=== PATIENT | female | born 1975 | race Caucasian/White ===

== ENCOUNTER → 2016-07-06 | Outpatient (CLI) | payer BC ==
[~2016-07-06] MED LIST: CLR10 PO; DPKEC250 PO; FRCT/ PO; IMITREX
--- NOTE | 2016-07-06 11:21 | DIAGNOSTIC IMAGING REPORT ---
LEFT HAND 3 VIEWS CLINICAL HISTORY: Left hand pain. FINDINGS: 3 views of left hand are obtained. No prior studies are available for comparison at the time of dictation. The skeletal structures are well mineralized. No fracture is seen. The joint spaces of the hand are well-maintained. No bony erosions are identified. The overlying soft tissues are within normal limits. IMPRESSION: No acute bony abnormality is seen in the left hand. Electronically signed by: Obi Caraballo M.D. 07/06/2016 11:19 AM Dictated Date/Time: 07/06/2016 11:18 AM
--- NOTE | 2016-07-06 12:09 | DIAGNOSTIC IMAGING REPORT ---
LEFT WRIST 3 VIEWS CLINICAL HISTORY: Left wrist pain. FINDINGS: 3 views of left wrist are obtained. No prior studies are available for comparison at the time of dictation. The skeletal structures are well mineralized. No fracture is seen. The joint spaces of the wrist are preserved. The overlying soft tissues are within normal limits. IMPRESSION: No acute bony abnormality is identified in the left wrist. Electronically signed by: Obi Caraballo M.D. 07/06/2016 12:07 PM Dictated Date/Time: 07/06/2016 12:07 PM
== END | disposition home or self-care (01) ==
LOC: C.RDSM 14:39
PROVIDERS: ATTEND Physical Medicine & Rehabilitation Sports Medicine
DX: M79.642 Pain in left hand (principal); S62.92XA Unspecified fracture of left hand, initial encounter for closed fracture; X58.XXXA Exposure to other specified factors, initial encounter

== ENCOUNTER → 2016-07-27 | Outpatient (CLI) | payer BC ==
--- NOTE | 2016-07-27 11:02 | DIAGNOSTIC IMAGING REPORT ---
RIGHT WRIST 3 VIEWS CLINICAL HISTORY: Right wrist pain. FINDINGS: 3 views of the right wrist are obtained. No prior studies are available for comparison at the time of dictation. The skeletal structures are well mineralized. No fracture is seen. The joint spaces of the wrist are well-maintained. The overlying soft tissues are within normal limits. IMPRESSION: Unremarkable radiographic assessment of the right wrist. Electronically signed by: Obi Caraballo M.D. 07/27/2016 11:00 AM Dictated Date/Time: 07/27/2016 11:00 AM
== END | disposition home or self-care (01) ==
LOC: C.RDSM 14:49
PROVIDERS: ATTEND Physical Medicine & Rehabilitation Sports Medicine
DX: M25.531 Pain in right wrist (principal)

== ENCOUNTER 2016-08-30 08:13 | Emergency (ER) | payer BC ==
[~2016-08-30] VITALS: Ht 157.5 cm; Wt 62.6 kg
[~2016-08-30 08:13] MED LIST changes: -CLR10 PO; -IMITREX
[2016-08-30 08:14] VITALS: TEMP 36.7; Ht 157.5 cm; Wt 62.6 kg
[2016-08-30] MEDS ORDERED: IMITREX (08:24)
[2016-08-30] MEDS ORDERED: CLR10 PO (08:24)
[2016-08-30] MEDS ORDERED: SODIUM CHLORIDE 0.9% 1000ML 1,000 ML IV STA (08:59)
--- NOTE | 2016-08-30 09:11 | EMERGENCY ROOM VISIT NOTE ---
History First contact with patient: 08:39 Chief Complaint: DIZZY Stated Complaint: SHAKES,LIGHT HEADED,DIZZINESS History of Present Illness The patient is a 40 year old female who presents to the Emergency Room with complaints of chest pain and dizziness. The patient states that she was driving to work and had a sudden onset of dizziness and feeling of 1 sensation in her chest. The patient states she pulled over. The patient denies any earache, sore throat, cough or fever. She denies any true pain but describes discomfort more as a warm sensation. She denies any shortness of breath or pain with deep inspiration. She denies any abdominal pain, nausea or vomiting. She denies any leg or arm swelling or pain. She denies any personal or family history of coagulopathy. She does not take control pills. She states that she does have significant stressors in her life at this time. She states it could be due to anxiety. She has never been formally treated for anxiety. Review of Systems A 10 system review of systems was completed with positives and pertinent negatives listed in the HPI. Past Medical/Surgical History Medical Problems: (1) Migraine Family History Diabetes mellitus Social History Smoking Status: Never Smoker Drug Use: none Marital Status: Housing Status: lives with family Occupation Status: employed Current/Historical Medications Scheduled Loratadine (Claritin), 10 MG PO DAILY Miscellaneous Medications [Imitrex] Allergies Coded Allergies: No Known Allergies (Verified , 08/30/16) Physical Exam Vital Signs Date Time Temp Pulse Resp B/P Pulse Ox O2 Delivery O2 Flow Rate FiO2 08/30/16 10:25 75 16 107/67 97 08/30/16 08:31 86 08/30/16 08:14 36.7 100 18 123/80 97 Room Air Physical Exam VITALS: Vitals are noted on the nurse's note and reviewed by myself. Vital signs stable. The patient is afebrile. She is not tachycardic, tachypneic or hypoxic. GENERAL: This is a 40-year-old female, in no acute distress, nondiaphoretic, well-developed well-nourished. SKIN: The skin was without rashes, erythema, edema, or bruising. There is no tenting of the skin. Capillary reflex less than 2 seconds. HEAD: Normocephalic atraumatic. EARS: External auditory canals clear, tympanic membranes pearly pfeiffer without erythema or effusion bilaterally. EYES: Pupils equal round and reactive to light and accommodation. Conjunctivae without injection, sclerae without icterus. Extraocular movements intact. NOSE: Patent, turbinates without inflammation or discharge. MOUTH: Mucous membranes moist. Tonsils are not enlarged. Pharynx without erythema or exudate. Uvula midline. Airway patent. Tongue does not deviate. NECK: Supple without nuchal rigidity. No lymphadenopathy. No thyromegaly. Cervical spine is nontender. No JVD. HEART: Regular rate and rhythm without murmurs gallops or rubs. LUNGS: Clear to auscultation bilaterally without wheezes, rales or rhonchi. No retractions or accessory muscle use. ABDOMEN: Positive bowel sounds x 4. Soft, nontender, without masses or organomegaly. MUSCULOSKELETAL: No muscle atrophy, erythema, or edema noted. Full range of motion in all extremities. Normal gait. Strength 5/5 throughout. NEURO: Patient was alert and oriented to person place and time. No focal neurological deficits. Medical Decision & Procedures ER Provider Diagnostic Interpretation: CHEST ONE VIEW PORTABLE CLINICAL HISTORY: Chest pain. COMPARISON STUDY: Chest CT February 26, 2008. FINDINGS: Lung volumes are normal. Lungs are clear. There is no pneumothorax or pleural effusion. Cardiac size is normal. Mediastinal contours are normal. There is no evidence of pulmonary edema. IMPRESSION: No acute cardiopulmonary findings. Laboratory Results 08/30/16 08:35 Red Blood Count 4.45, Mean Corpuscular Volume 87.4, Mean Corpuscular Hemoglobin 30.8, Mean Corpuscular Hemoglobin Concent 35.2, Mean Platelet Volume 11.0, Neutrophils (%) (Auto) 76.8, Lymphocytes (%) (Auto) 14.5, Monocytes (%) (Auto) 5.5, Eosinophils (%) (Auto) 2.8, Basophils (%) (Auto) 0.3, Neutrophils # (Auto) 5.18, Lymphocytes # (Auto) 0.98, Monocytes # (Auto) 0.37, Eosinophils # (Auto) 0.19, Basophils # (Auto) 0.02 08/30/16 08:35 Test 08/30/16 08:35 08/30/16 09:00 White Blood Count 6.75 K/uL (4.8-10.8) Red Blood Count 4.45 M/uL (4.2-5.4) Hemoglobin 13.7 g/dL (12.0-16.0) Hematocrit 38.9 % (37-47) Mean Corpuscular Volume 87.4 fL (80-100) Mean Corpuscular Hemoglobin 30.8 pg (25-34) Mean Corpuscular Hemoglobin Concent 35.2 g/dl (32-36) Platelet Count 196 K/uL (130-400) Mean Platelet Volume 11.0 fL (7.4-10.4) Neutrophils (%) (Auto) 76.8 % Lymphocytes (%) (Auto) 14.5 % Monocytes (%) (Auto) 5.5 % Eosinophils (%) (Auto) 2.8 % Basophils (%) (Auto) 0.3 % Neutrophils # (Auto) 5.18 K/uL (1.4-6.5) Lymphocytes # (Auto) 0.98 K/uL (1.2-3.4) Monocytes # (Auto) 0.37 K/uL (0.11-0.59) Eosinophils # (Auto) 0.19 K/uL (0-0.5) Basophils # (Auto) 0.02 K/uL (0-0.2) RDW Standard Deviation 42.3 fL (36.4-46.3) RDW Coefficient of Variation 13.2 % (11.5-14.5) Immature Granulocyte % (Auto) 0.1 % Immature Granulocyte # (Auto) 0.01 K/uL (0.00-0.02) Anion Gap 6.0 mmol/L (3-11) Est Creatinine Clear Calc Drug Dose 65.7 ml/min Estimated GFR () 82.2 Estimated GFR (Non- 70.9 BUN/Creatinine Ratio 13.2 (10-20) Calcium Level 8.4 mg/dl (8.5-10.1) Total Bilirubin 0.7 mg/dl (0.2-1) Aspartate Amino Transf (AST/SGOT) 10 U/L (15-37) Alanine Aminotransferase (ALT/SGPT) 15 U/L (12-78) Alkaline Phosphatase 57 U/L (45-117) Total Creatine Kinase 54 U/L (26-192) Creatine Kinase MB < 0.5 ng/ml (0.5-3.6) Creatine Kinase MB Ratio (0-3.0) Troponin I < 0.015 ng/ml (0-0.045) Total Protein 7.2 gm/dl (6.4-8.2) Albumin 3.8 gm/dl (3.4-5.0) Globulin 3.4 gm/dl (2.5-4.0) Albumin/Globulin Ratio 1.1 (0.9-2) Thyroid Stimulating Hormone (TSH) 2.520 uIu/ml (0.300-4.500) Urine Color YELLOW Urine Appearance CLEAR (CLEAR) Urine pH 6.0 (4.5-7.5) Urine Specific [place] 1.004 (1.000-1.030) Urine Protein NEG (NEG) Urine Glucose (UA) NEG (NEG) Urine Ketones NEG (NEG) Urine Occult Blood 1+ (NEG) Urine Nitrite NEG (NEG) Urine Bilirubin NEG (NEG) Urine Urobilinogen NEG (NEG) Urine Leukocyte Esterase NEG (NEG) Urine WBC (Auto) 1-5 /hpf (0-5) Urine RBC (Auto) 0-4 /hpf (0-4) Urine Hyaline Casts (Auto) 0 /lpf (0-5) Urine Epithelial Cells (Auto) 20-30 /lpf (0-5) Urine Bacteria (Auto) NEG (NEG) Urine Test NEG (NEG) Medications Administered Medications (Trade) Dose Ordered Sig/Stevie Route Start Time Stop Time Status Last Admin Dose Admin Sodium Chloride (Nss 1000ml) 1,000 ml @ 999 mls/hr Q1H1M STAT IV 08/30/16 08:59 08/30/16 09:59 DC 08/30/16 09:26 999 MLS/HR Procedure The patient was monitored on a cardiac exercise physiologist. They maintained a normal sinus rhythm without ectopy. ECG Indication: chest pain Rate (beats per minute): 82 Rhythm: normal sinus Findings: no acute ischemic change Change: no significant change ED Course The patient was seen and examined. Previous visits were reviewed. The patient does not have a fever or leukocytosis. She does not have any significant electrolyte abnormalities. Thyroid was within normal limits. Troponin was not elevated. Urine test was negative. EKG does not reveal any arrhythmia or ischemia Chest x-ray was negative The patient was hydrated with normal saline The patient presents to the emergency department with a warm sensation in her chest. She has not had any shortness of breath or pain with deep inspiration. She does not take control pills. She was not tachycardic or hypoxic. She does not have significant risk factors for PE or DVT. The initial workup does not reveal any obvious abnormality. The patient states she has had a significant amount of stress and anxiety at home. This may be contributing to her symptoms. I did offer Ativan but the patient declined and stated she would rather follow-up with her family doctor. She was encouraged to contact her family doctor today to schedule a follow-up appointment for further evaluation and management. The case was discussed with Dr. Gonsales who agrees with the assessment and management plan Medical Decision DIFFERENTIAL DIAGNOSIS: Aortic dissection, myocarditis, pericarditis, cervical disc disease, costochondritis, herpes zoster, rib fracture, pleuritis, pneumonia , pulmonary embolus, tension pneumothorax, anxiety disorder, somatoform disorder , choledocholithiasis, status, esophagitis, esophageal spasm, esophageal reflux , esophageal rupture, pancreatitis, peptic ulcer disease, cardiac ischemia, ST elevation [place], acute coronary syndrome, arrhythmia, coronary artery vasospasm. vavular heart disease, coronary artery disease, among others. Impression Primary Impression: Chest pain, precordial Additional Impression: Anxiety reaction Departure Information Dispostion Home / Self-Care Condition GOOD Referrals No Doctor, Assigned (PCP) Patient Instructions Anxiety Body Response, Chest Pain - [facility], [facility] Additional Instructions Contact your family doctor today to schedule a follow up appointment for further evaluation and management Return with worsening symptoms, shortness of breath Problem Qualifiers
[2016-08-30 09:14] LABS: BASO % 0.3 %; BASO ABS # 0.02 K/uL (0-0.2); COMPLETE YES; EOS % 2.8 %; HEMATOCRIT 38.9 % (37-47); IG% 0.1 %; LYMPH % 14.5 %; LYMPH ABS # 0.98 K/uL (1.2-3.4); MEAN CELL VOLUME 87.4 fL (80-100); MEAN CORPUSCULAR HEMOGLOBIN 30.8 pg (25-34); MEAN CORPUSCULAR HGB CONC 35.2 g/dl (32-36); MONO % 5.5 %; NEUT % 76.8 %; PLATELET COUNT 196 K/uL (130-400); RED BLOOD COUNT 4.45 M/uL (4.2-5.4); WHITE BLOOD COUNT 6.75 K/uL (4.8-10.8)
--- NOTE | 2016-08-30 09:14 | DIAGNOSTIC IMAGING REPORT ---
CHEST ONE VIEW PORTABLE CLINICAL HISTORY: Chest pain. COMPARISON STUDY: Chest CT February 26, 2008. FINDINGS: Lung volumes are normal. Lungs are clear. There is no pneumothorax or pleural effusion. Cardiac size is normal. Mediastinal contours are normal. There is no evidence of pulmonary edema. IMPRESSION: No acute cardiopulmonary findings. Electronically signed by: Marv Fay M.D. 08/30/2016 9:12 AM Dictated Date/Time: 08/30/2016 9:12 AM
[2016-08-30 09:23] LABS: ALT/SGPT 15 U/L (12-78); AST/SGOT 10 U/L (15-37); BLOOD UREA NITROGEN 13 mg/dl (7-18); BUN/CREATININE RATIO 13.2 (10-20); CALCIUM 8.4 mg/dl (8.5-10.1); CARBON DIOXIDE 26 mmol/L (21-32); CHLORIDE 109 mmol/L (98-107); GLUCOSE 142 mg/dl (70-99); POTASSIUM 3.8 mmol/L (3.5-5.1); SODIUM 141 mmol/L (136-145)
[2016-08-30 09:34] LABS: ALB/GLOB RATIO 1.1 (0.9-2); ALKALINE PHOSPHATASE 57 U/L (45-117)
[2016-08-30 09:50] LABS: URINE APPEARANCE CLEAR (CLEAR); URINE BILIRUBIN NEG (NEG); URINE COLOR YELLOW; URINE EPITHELIAL CELL AUTO 20-30 /lpf (0-5); URINE NITRITE NEG (NEG); URINE SPECIFIC GRAVITY 1.004 (1.000-1.030); UROBILINOGEN NEG (NEG); ZZUR CULT IF INDIC CLEAN CATCH NO
[2016-08-30 09:58] LABS: MANUAL MICROSCOPIC REQUIRED? NO; REVIEW REQ? NO
[2016-08-30 10:25] VITALS: BP 107/67; PULSE 75; O2SAT 97
== END 2016-08-30 10:27 | disposition home or self-care (01) ==
LOC: C.EDB 08:14
DX: R07.2 Precordial pain (principal); F41.9 Anxiety disorder, unspecified; R42 Dizziness and giddiness

== ENCOUNTER 2021-04-27 22:57 | Inpatient (IN) ==
--- NOTE | 2021-04-27 23:28 | Emergency Department Note ---
History of Present Illness General Chief complaint: Illness Stated complaint: COV+(04/18) DIARRHEA, HEADACHE, VOMITING Time Seen by Provider: 04/27/21 23:08 History of Present Illness Maximum Pain Intensity: 8 This is a 45-year-old female that presents to the emergency department via priv ate vehicle with complaints of "Covid positive, diarrhea, headache, vomiting". The patient notes she is currently on day 10 of COVID-19 symptoms. Patient states that she initially began with a backache followed by some aching sensation into her legs followed by headache, fever, cough, diarrhea, nausea and vomiting. She states that she was tested [facility] here in [place] and was found to be positive for COVID-19. She denies any pertinent past medical history, surgeries or allergies. She notes that she is unvaccinated in regard to COVID-19. She denies any history of PE/DVT. Home Medications Medication Instructions Recorded Confirmed Type VS-RN-tredgh/WO-knoxqx-rruycbr 1 cap PO BID 04/28/21 04/28/21 History 10-5-325mg(d)/15-325-6.25mg capsules (Vicks DayQuil-NyQuil) acetaminophen 500 mg tablet 500 mg PO Q6H PRN 04/28/21 04/28/21 History Allergies Allergy/AdvReac Type Severity Reaction Status Date / Time No Known Allergies Allergy Verified 04/28/21 00:22 Past Med/Surg History Medical History (Updated 04/28/21 @ 08:47 by Logan Mcgrath PA-C) Gestational diabetes Surgical History No pertinent past surgical history Family History Mother Heart disease, Onset Age: 56 Father Diabetes Myocardial infarction, Onset Age: 50 Social History Smoking Status: Never smoker Second Hand Exposure: No; Do You Dip or Chew Tobacco: No; Hx Alcohol Use: No Hx Substance Use: No Preferred Language: Welsh Communication Ability: Effective Radiology Rn Required: No Beliefs That Will Affect Care: None Current Living Situation: Family Other Information That Helps Us Care for You: No Feels Safe at Home: Yes Safety Concerns: Feels Safe At This Time Assistive Devices: None Review of Systems A total of 10 systems reviewed and were otherwise negative Physical Exam Vital Signs Vital Signs - 24 hr 04/27/21 23:03 04/27/21 23:15 04/27/21 23:16 Temperature 37.3 C Temperature Source Temporal Artery Scan Pulse Rate 120 H Pulse Rate [Right Finger] 109 H Pulse Rhythm Pulse Rhythm [Right Finger] Pulse Strength [Right Finger] Normal Respiratory Rate 18 18 Respiratory Effort / Characteristics Short of Breath Non-Labored Spontaneous Respiratory Depth Normal Respiratory Pattern Regular Blood Pressure 100/62 Blood Pressure [Right Arm] 103/63 Blood Pressure Mean 74 Blood Pressure Mean [Right Arm] 76 Blood Pressure Position [Right Arm] Sitting Pulse Oximetry 88 L 89 L 89 L Oxygen Delivery Method Room Air Room Air Room Air Oxygen Flow Rate Sepsis Recent Fever Within 48 Hours No Sepsis New/Unexplained Change in Mental Status No Sepsis Action Taken by Nursing No Action Required Oxygen Flow Rate - Titration 2 Pulse Oximetry Post Tiitration 92 04/27/21 23:17 04/28/21 00:07 04/28/21 00:46 Temperature Temperature Source Pulse Rate 103 H Pulse Rate [Right Finger] 87 Pulse Rhythm Regular Pulse Rhythm [Right Finger] Regular Pulse Strength [Right Finger] Normal Respiratory Rate 18 18 Respiratory Effort / Characteristics Non-Labored Spontaneous Respiratory Depth Normal Respiratory Pattern Regular Blood Pressure Blood Pressure [Right Arm] 101/61 Blood Pressure Mean Blood Pressure Mean [Right Arm] 74 Blood Pressure Position [Right Arm] Sitting Pulse Oximetry 92 95 97 Oxygen Delivery Method Nasal Cannula Nasal Cannula Nasal Cannula Oxygen Flow Rate 2 2 2 Sepsis Recent Fever Within 48 Hours Sepsis New/Unexplained Change in Mental Status Sepsis Action Taken by Nursing Oxygen Flow Rate - Titration Pulse Oximetry Post Tiitration 04/28/21 01:00 Temperature Temperature Source Pulse Rate Pulse Rate [Right Finger] 95 H Pulse Rhythm Pulse Rhythm [Right Finger] Regular Pulse Strength [Right Finger] Normal Respiratory Rate 18 Respiratory Effort / Characteristics Non-Labored Spontaneous Respiratory Depth Normal Respiratory Pattern Regular Blood Pressure Blood Pressure [Right Arm] 100/66 Blood Pressure Mean Blood Pressure Mean [Right Arm] 77 Blood Pressure Position [Right Arm] Sitting Pulse Oximetry 95 Oxygen Delivery Method Nasal Cannula Oxygen Flow Rate 2 Sepsis Recent Fever Within 48 Hours Sepsis New/Unexplained Change in Mental Status Sepsis Action Taken by Nursing Oxygen Flow Rate - Titration Pulse Oximetry Post Tiitration VITAL SIGNS - Vital signs and nursing notes were reviewed. Stable and afebrile. GENERAL - 45-year-old female appearing her stated age who is in no acute distress but appears to be tired. Communicates well with provider and answers questions appropriately. SKIN - Without rashes. No meningeal or petechial rash. HEAD - NC/AT. EYES - PERRL with EOMI bilaterally. Sclera anicteric. EARS - No deformities of external structures noted on gross examination bilaterally. NOSE - Midline and without cyanosis. No epistaxis or purulent drainage noted. MOUTH/OROPHARYNX - Without perioral cyanosis. No drooling, stridor, trismus, wheezing or tripoding. Normal phonation. NECK - Neck with FROM. No nuchal rigidity. LUNGS - Chest wall symmetric without accessory muscle use, intercostals retractions, or central cyanosis. Normal vesicular breath sounds CTA B/L. No wheezes, rales, or rhonchi appreciated. CARDIAC - RRR EXTREMITIES - +5/5 strength noted in UE/LE bilaterally. NEUROLOGIC - Cranial nerves II through XII grossly intact. PSYCH - A&O, and cooperates fully with examiner. Pt is very pleasant and intera cts well with examiner. Course Administered Medications Albuterol (Albut/Ipratrop 3mg/0.5mg Neb 3 Ml Vial) 3 ml NEB QIDR [facility] Stop: 05/28/21 06:59 Last Admin: 04/28/21 05:58 Dose: 3 ml Documented by: [id number] Potassium Chloride/Sodium Chloride (Normal Saline W/20 Meq Kcl) 20 meq in 1,000 mls @ 80 mls/hr IV .[id number] [facility] Stop: 04/28/21 16:04 Last Admin: 04/28/21 04:55 Dose: 80 mls/hr Documented by: [id number] Azithromycin 500 mg/ Dextrose 255 mls @ 125 mls/hr IV Q24H [facility] Stop: 05/05/21 05:59 Last Infusion: 04/28/21 07:47 Dose: 0 mls/hr Documented by: [id number] Admin: 04/28/21 05:41 Dose: 125 mls/hr Documented by: [id number] Discontinued Medications Dexamethasone 6 mg/ Syringe 1.5 mls @ 1 mls/min IV ONE ONE Stop: 04/28/21 01:37 Last Admin: 04/28/21 02:40 Dose: 1 mls/min Documented by: [id number] Remdesivir 200 mg/ Sodium (Chloride) 250 mls @ 125 mls/hr IV ONE STA; Protocol Stop: 04/28/21 03:42 Last Infusion: 04/28/21 04:59 Dose: 0 mls/hr Documented by: [id number] Admin: 04/28/21 02:44 Dose: 125 mls/hr Documented by: [id number] Medical Decision Making Laboratory Data Result diagrams: 04/28/21 00:14 04/28/21 00:14 Lab Results 04/28/21 04/28/21 04/28/21 Range/Units 00:14 00:14 00:14 WBC 4.14 L (4.8-10.8) K/uL RBC 4.37 (4.2-5.4) M/uL Hgb 12.9 (12.0-16.0) g/dL Hct 38.0 (37-47) % MCV 87.0 (80-100) fL MCH 29.5 (25-34) pg MCHC 33.9 (32-36) g/dL RDW Std Deviation 43.9 (36.4-46.3) fL RDW Coeff of Tierney 13.7 (11.5-14.5) % Plt Count 114 L (130-400) K/uL MPV 11.3 H (7.4-10.4) fL Immature Gran % (Auto) 0.2 % Neut % (Auto) 80.3 % Lymph % (Auto) 11.1 % [place] % (Auto) 8.2 % Eos % (Auto) 0.2 % Baso % (Auto) 0.0 % Neut # (Auto) 3.32 (1.4-6.5) K/uL Lymph # (Auto) 0.46 L (1.2-3.4) K/uL [place] # (Auto) 0.34 (0.11-0.59) K/uL Eos # (Auto) 0.01 (0-0.5) K/uL Baso # (Auto) 0.00 (0-0.2) K/uL Immature Gran # (Auto) 0.01 (0.00-0.02) K/uL RBC Morphology Unremarkable Sodium 136 (136-145) mmol/L Potassium 4.0 (3.5-5.1) mmol/L Chloride 107 (98-107) mmol/L Carbon Dioxide 21 (21-32) mmol/L Anion Gap 8.0 (3-11) BUN 15 (7-18) mg/dl Creatinine 0.89 (0.6-1.2) mg/dl Est Cr Clr Drug Dosing 63.8 ml/min Est GFR ( Amer) 91.4 ml/min Est GFR (Non-Af Amer) 78.8 ml/min BUN/Creatinine Ratio 16.8 (10-20) Glucose 100 H (70-99) mg/dl Calcium 8.0 L (8.5-10.1) mg/dl Total Bilirubin 0.4 (0.2-1) mg/dl AST 44 H (15-37) U/L ALT 31 (12-78) Alkaline Phosphatase 46 (45-117) U/L Troponin I < 0.015 (0-0.045) ng/ml C-Reactive Protein 7.43 H (0-0.29) mg/dl Total Protein 6.4 (6.4-8.2) gm/dl Albumin 2.5 L (3.4-5.0) gm/dl Globulin 3.9 (2.5-4.0) gm/dl Albumin/Globulin Ratio 0.6 L (0.9-2) Procalcitonin 0.08 (0-0.5) ng/ml HCG, Qual Negative (Negative) SARS-CoV-2 (PCR) (Negative) Influenza Type A (PCR) (Neg) Influenza Type B (PCR) (Neg) RSV (RT-PCR) (Neg) 04/28/21 Range/Units 00:14 WBC (4.8-10.8) K/uL RBC (4.2-5.4) M/uL Hgb (12.0-16.0) g/dL Hct (37-47) % MCV (80-100) fL MCH (25-34) pg MCHC (32-36) g/dL RDW Std Deviation (36.4-46.3) fL RDW Coeff of Tierney (11.5-14.5) % Plt Count (130-400) K/uL MPV (7.4-10.4) fL Immature Gran % (Auto) % Neut % (Auto) % Lymph % (Auto) % [place] % (Auto) % Eos % (Auto) % Baso % (Auto) % Neut # (Auto) (1.4-6.5) K/uL Lymph # (Auto) (1.2-3.4) K/uL [place] # (Auto) (0.11-0.59) K/uL Eos # (Auto) (0-0.5) K/uL Baso # (Auto) (0-0.2) K/uL Immature Gran # (Auto) (0.00-0.02) K/uL RBC Morphology Sodium (136-145) mmol/L Potassium (3.5-5.1) mmol/L Chloride (98-107) mmol/L Carbon Dioxide (21-32) mmol/L Anion Gap (3-11) BUN (7-18) mg/dl Creatinine (0.6-1.2) mg/dl Est Cr Clr Drug Dosing ml/min Est GFR ( Amer) ml/min Est GFR (Non-Af Amer) ml/min BUN/Creatinine Ratio (10-20) Glucose (70-99) mg/dl Calcium (8.5-10.1) mg/dl Total Bilirubin (0.2-1) mg/dl AST (15-37) U/L ALT (12-78) Alkaline Phosphatase (45-117) U/L Troponin I (0-0.045) ng/ml C-Reactive Protein (0-0.29) mg/dl Total Protein (6.4-8.2) gm/dl Albumin (3.4-5.0) gm/dl Globulin (2.5-4.0) gm/dl Albumin/Globulin Ratio (0.9-2) Procalcitonin (0-0.5) ng/ml HCG, Qual (Negative) SARS-CoV-2 (PCR) POSITIVE A* (Negative) Influenza Type A (PCR) Negative (Neg) Influenza Type B (PCR) Negative (Neg) RSV (RT-PCR) Negative (Neg) MDM Narrative Patient was seen and evaluated as above in room B 10. Review was performed of triage nursing notes and vital signs. After obtaining a thorough history and physical examination the above work up was performed. Patient presents to us today with a known Covid positive diagnosis with associated diarrhea, headache, vomiting. Patient is found to be hypoxic on arrival. She is overall tired in appearance. Options of care were discussed with the patient. IV access was established. Labs were drawn. Laboratory studies at this time reveal leukopenia 4.14. No anemia. Thrombocytopenia noted at 114. No emergent metabolic disturbance. Mild hypocalcemia at 8.0. Mild AST elevation at 44. Troponin within normal limits. CRP elevated at 7.43. Covid testing positive. Pro-Hugh 0.08. hCG negative. Chest x-ray reveals what appears to be a multifocal pneumonia likely viral in nature. With the patient being hypoxic I do believe that further evaluation and management the inpatient setting is warranted. I do not suspect PE. Do not suspect meningitis or encephalitis. Case discussed with the hospitalist. Please refer to further documentation regarding her stay. Patient was seen during a period of high volume and acuity during the COVID-19 pandemic. EKG reveals normal sinus rhythm at a rate of 94 bpm. QTc 442. QRS 66. There is no ST elevation. GCS: 15 In the evaluation and treatment of this patient the following differential diagnoses were entertained: [place], PE, pericarditis, pneumonia, pneumothorax, COVID-19, among others. Impression & Plan Hypoxia, COVID-19, Pneumonia due to COVID-19 virus, Thrombocytopenia, Abnormal LFTs Discharge Plan Visit Data Chief Complaint: Illness Stated Complaint: COV+(04/18) DIARRHEA, HEADACHE, VOMITING ED Provider: Amanda Ahumada ED Midlevel Provider: Logan Mcgrath Discharge Problem: Hypoxia, COVID-19, Pneumonia due to COVID-19 virus, Thrombocytopenia, Abnormal LFTs Patient Disposition: Admitted As Inpatient Discharge Instructions Interventions: ED Discharge Assessment Last Done: 04/28/21 02:45
[2021-04-28 00:29] LABS: Hemoglobin 12.9 g/dL (12.0-16.0); Mean Corpuscular Hemoglobin 29.5 pg (25-34); Mean Corpuscular Hgb Conc 33.9 g/dL (32-36); Mean Platelet Volume 11.3 fL (7.4-10.4); Platelet Count 114 K/uL (130-400); RDW Coefficient of Variation 13.7 % (11.5-14.5); RDW Standard Deviation 43.9 fL (36.4-46.3); Red Blood Count 4.37 M/uL (4.2-5.4); White Blood Count 4.14 K/uL (4.8-10.8)
[2021-04-28 00:48] LABS: Alanine Aminotransferase 31 (12-78); Albumin Level 2.5 gm/dl (3.4-5.0); Aspartate Aminotransferase 44 U/L (15-37); BUN Creatinine Ratio 16.8 (10-20); Blood Urea Nitrogen 15 mg/dl (7-18); Carbon Dioxide 21 mmol/L (21-32); Chloride 107 mmol/L (98-107); Creatinine Clr Calc Pharmacy 63.8 ml/min; Est GFR (African American) 91.4 ml/min; Est GFR (Non-African American) 78.8 ml/min; Glucose 100 mg/dl (70-99); Sodium 136 mmol/L (136-145)
[2021-04-28 00:52] LABS: Albumin Globulin Ratio 0.6 (0.9-2); Alkaline Phosphatase 46 U/L (45-117); Bilirubin,Total 0.4 mg/dl (0.2-1); C Reactive Protein 7.43 mg/dl (0-0.29); Globulin 3.9 gm/dl (2.5-4.0); Total Protein 6.4 gm/dl (6.4-8.2); Troponin I < 0.015 ng/ml (0-0.045)
[2021-04-28 00:53] LABS: Pregnancy Test, Serum Negative (Negative)
[2021-04-28 00:56] LABS: Eosinophils # (auto) 0.01 K/uL (0-0.5); Eosinophils % (auto) 0.2 %; Immature Granulocytes # (auto) 0.01 K/uL (0.00-0.02); Immature Granulocytes % (auto) 0.2 %; Lymphocytes # (auto) 0.46 K/uL (1.2-3.4); Lymphocytes % (auto) 11.1 %; Monocytes # (auto) 0.34 K/uL (0.11-0.59); Monocytes % (auto) 8.2 %; Neutrophils # (auto) 3.32 K/uL (1.4-6.5); Neutrophils % (auto) 80.3 %; RBC Morphology Unremarkable
[2021-04-28 01:02] LABS: Influenza A virus by PCR Negative (Neg); Influenza B virus by PCR Negative (Neg); RSV by PCR Negative (Neg)
[2021-04-28 01:14] LABS: SARS CoV2 RNA(COVID-19) InHosp POSITIVE (Negative)
[2021-04-28 01:16] LABS: Procalcitonin 0.08 ng/ml (0-0.5)
[2021-04-28] MEDS ORDERED: dexAMETHasone 6 MG in SYRINGE 0 ML IV ONE (01:36)
[2021-04-28] MEDS ORDERED: REMDESIVIR 200 MG in SODIUM CHLORIDE 0.9% 210 ML IV STA (01:43)
--- NOTE | 2021-04-28 01:44 | History & Physical Report ---
Date of Service April 28, 2021 Assessment & Plan (1) Pneumonia due to COVID-19 virus: Plan: Multifocal pneumonia due to COVID-19 virus with hypoxia- Dexamethasone 6 mg IV every morning Remdesivir IV per protocol Azithromycin 500 mg IV daily Duonebs every 4 hours while awake and every 2 hours when necessary. Guaifenesin extended release 1200 mg p.o. twice daily Vitamin D 1000 international units p.o. every morning Zinc sulfate 220 mg p.o. every morning Nasal cannula oxygen, titrate to keep pulse ox 94-95% (2) Hypoxia: Plan: See above (3) Multifocal pneumonia: Plan: See above (4) Thrombocytopenia: Plan: Platelets 114 upon admission, with most recent 219 on 07/19/2019 Repeat laboratories in a.m. (5) Abnormal LFTs: Plan: AST 44 upon admission Likely secondary to COVID-19 infection Repeat laboratories in a.m. (6) Diarrhea due to COVID-19: Plan: Diarrhea due to COVID-19 infection-if persists, add cholestyramine in a.m. History of Present Illness Chief Complaint: The patient presents to the emergency department with complaint of shortness of breath, dyspnea on exertion, headache, diarrhea, vomiting and generalized malaise, with initial COVID-19 positive test on 04/18. Primary Care Provider: Rosa Park MD The patient is a 45-year-old female with no significant past medical history who presents with symptoms as noted above. Significant laboratories: Hemoglobin 12.9, hematocrit 38.0, platelets 114, AST 44, albumin 2.5. Patient is COVID-19 positive this evening, with influenza a and B- and RSV negative. Pulse ox 88% on room air Chest x-ray with multifocal pneumonia Allergies Allergy/AdvReac Type Severity Reaction Status Date / Time No Known Allergies Allergy Verified 04/28/21 00:22 Home Medications Medication Instructions Recorded Confirmed Type QQ-HB-gdjsct/BT-fqmbsm-zxwnbof 1 cap PO BID 04/28/21 04/28/21 History 10-5-325mg(d)/15-325-6.25mg capsules (Vicks DayQuil-NyQuil) acetaminophen 500 mg tablet 500 mg PO Q6H PRN 04/28/21 04/28/21 History Past Med/Surg History Medical History (Updated 04/28/21 @ 03:56 by Osito Levi MD) Gestational diabetes Surgical History No pertinent past surgical history Family History Mother Heart disease, Onset Age: 56 Father Diabetes Myocardial infarction, Onset Age: 50 Social History Smoking Status: Never smoker Hx Alcohol Use: Yes Hx Substance Use: No Preferred Language: Bermudian Feels Safe at Home: Yes Review of Systems Review of Systems: The patient denies chest pain, palpitations, cough, lower extremity swelling, sore throat, fevers, chills, sweats, blood in urine or stool, dysuria, urinary frequency or urgency, memory loss, loss of consciousness, rash, abnormal bruising or bleeding, imbalance, focal weakness, numbness or tingling in arms or legs, back or neck pain, or night sweats. The review of systems is otherwise negative other than for that already noted above, and at least 10 systems have been reviewed. Physical Exam Physical Exam: The patient is awake, alert and oriented 3, looks severely fatigued, normocephalic and atraumatic, lying in bed and in no acute distress. HEENT--PERRL, EOMI, mucous membranes and oropharynx dry. Neck--supple. No JVD. No bruits. Thyroid normal, trachea midline, no adenopathy. Heart--normal S1 and S2. No murmurs, rubs or gallops. Lungs--crackles throughout, no respiratory distress, no accessory muscle use. Abdomen--normal bowel sounds and soft. Nontender. Nondistended Extremities--no cyanosis or clubbing. No edema. Dermatologic--normal skin turgor, normal color, no abnormal lymph nodes, no rash. Neurologic--cranial nerves II through XII grossly intact. Rheumatologic--normal range of motion. Psychiatric--normal affect. Results & Data Results & Data ([facility]) Vital Signs (Past 12 Hours) Vital Signs Temp Pulse Pulse Resp BP BP Pulse Ox 04/28/21 01:00 95 H 18 100/66 95 04/28/21 00:07 103 H 18 95 04/27/21 23:17 92 04/27/21 23:16 89 L 04/27/21 23:15 109 H 18 103/63 89 L 04/27/21 23:03 37.3 C 120 H 18 100/62 88 L Laboratory Results Laboratory Results WBC 4.14 K/uL (4.8-10.8) L 04/28/21 00:14 RBC 4.37 M/uL (4.2-5.4) 04/28/21 00:14 Hgb 12.9 g/dL (12.0-16.0) 04/28/21 00:14 Hct 38.0 % (37-47) 04/28/21 00:14 MCV 87.0 fL (80-100) 04/28/21 00:14 MCH 29.5 pg (25-34) 04/28/21 00:14 MCHC 33.9 g/dL (32-36) 04/28/21 00:14 RDW Std Deviation 43.9 fL (36.4-46.3) 04/28/21 00:14 RDW Coeff of Tierney 13.7 % (11.5-14.5) 04/28/21 00:14 Plt Count 114 K/uL (130-400) L 04/28/21 00:14 MPV 11.3 fL (7.4-10.4) H 04/28/21 00:14 Immature Gran % (Auto) 0.2 % 04/28/21 00:14 Neut % (Auto) 80.3 % 04/28/21 00:14 Lymph % (Auto) 11.1 % 04/28/21 00:14 Millard % (Auto) 8.2 % 04/28/21 00:14 Eos % (Auto) 0.2 % 04/28/21 00:14 Baso % (Auto) 0.0 % 04/28/21 00:14 Neut # (Auto) 3.32 K/uL (1.4-6.5) 04/28/21 00:14 Lymph # (Auto) 0.46 K/uL (1.2-3.4) L 04/28/21 00:14 Millard # (Auto) 0.34 K/uL (0.11-0.59) 04/28/21 00:14 Eos # (Auto) 0.01 K/uL (0-0.5) 04/28/21 00:14 Baso # (Auto) 0.00 K/uL (0-0.2) 04/28/21 00:14 Immature Gran # (Auto) 0.01 K/uL (0.00-0.02) 04/28/21 00:14 RBC Morphology Unremarkable 04/28/21 00:14 Sodium 136 mmol/L (136-145) 04/28/21 00:14 Potassium 4.0 mmol/L (3.5-5.1) 04/28/21 00:14 Chloride 107 mmol/L (98-107) 04/28/21 00:14 Carbon Dioxide 21 mmol/L (21-32) 04/28/21 00:14 Anion Gap 8.0 (3-11) 04/28/21 00:14 BUN 15 mg/dl (7-18) 04/28/21 00:14 Creatinine 0.89 mg/dl (0.6-1.2) 04/28/21 00:14 Est Cr Clr Drug Dosing 63.8 ml/min 04/28/21 00:14 Est GFR ( Amer) 91.4 ml/min 04/28/21 00:14 Est GFR (Non-Af Amer) 78.8 ml/min 04/28/21 00:14 BUN/Creatinine Ratio 16.8 (10-20) 04/28/21 00:14 Glucose 100 mg/dl (70-99) H 04/28/21 00:14 Calcium 8.0 mg/dl (8.5-10.1) L 04/28/21 00:14 Total Bilirubin 0.4 mg/dl (0.2-1) 04/28/21 00:14 AST 44 U/L (15-37) H 04/28/21 00:14 ALT 31 (12-78) 04/28/21 00:14 Alkaline Phosphatase 46 U/L (45-117) 04/28/21 00:14 Troponin I < 0.015 ng/ml (0-0.045) 04/28/21 00:14 C-Reactive Protein 7.43 mg/dl (0-0.29) H 04/28/21 00:14 Total Protein 6.4 gm/dl (6.4-8.2) 04/28/21 00:14 Albumin 2.5 gm/dl (3.4-5.0) L 04/28/21 00:14 Globulin 3.9 gm/dl (2.5-4.0) 04/28/21 00:14 Albumin/Globulin Ratio 0.6 (0.9-2) L 04/28/21 00:14 Procalcitonin 0.08 ng/ml (0-0.5) 04/28/21 00:14 HCG, Qual Negative (Negative) 04/28/21 00:14 SARS-CoV-2 (PCR) POSITIVE (Negative) A* 04/28/21 00:14 Influenza Type A (PCR) Negative (Neg) 04/28/21 00:14 Influenza Type B (PCR) Negative (Neg) 04/28/21 00:14 RSV (RT-PCR) Negative (Neg) 04/28/21 00:14 Code Status & VTE Plan Code Status Full code VTE Prophylaxis Plan VTE Prophylaxis will be ordered: Yes PG Care Time/CCT Total # of Minutes Spent Total Time Spent with Patient: Total time spent is greater than 50% in coordination of care (as documented) at patient's floor/unit and/or counseling patient: Coding Level of Care Code 23346 Initial Inpt Care Lvl 3 Diagnoses Pneumonia due to COVID-19 virus U07.1; J12.82 Hypoxia R09.02 Multifocal pneumonia J18.9 Thrombocytopenia D69.6 Abnormal LFTs R79.89 Diarrhea due to COVID-19 U07.1; A08.39
[2021-04-28] MEDS ORDERED: NSS + 20MEQ KCL 20 MEQ/1,000 ML BAG IV SCH (03:35)
[2021-04-28] MEDS ORDERED: ONDANSETRON INJ 2 MG/ML 2 ML VIAL IV PRN (03:35)
[2021-04-28] MEDS ORDERED: SODIUM CHLORIDE 0.9% 10ML FLUSH IV SCH ×2 (04:30→21:00)
[2021-04-28] MEDS ORDERED: ALBUT/IPRATROP 3MG/0.5MG NEB 3 ML VIAL ONE (05:53)
[2021-04-28] MEDS ORDERED: AZITHROMYCIN 500 MG in DEXTROSE 5% 250 ML IV SCH (06:00)
[2021-04-28] MEDS ORDERED: ALBUT/IPRATROP 3MG/0.5MG NEB 3 ML VIAL NEB SCH (07:00)
--- NOTE | 2021-04-28 09:07 | XRay Report ---
XR chest 1V portable HISTORY: Covid positive. Shortness of breath. COMPARISON: Chest 20 minutes 20. FINDINGS: No pneumothorax or no pleural effusions. The heart is normal in size. Hazy bilateral airspa ce opacities seen within the mid to lower lung zones. This likely represents a viral pneumonia. No ev idence for pulmonary edema. Calcified right hilar lymph nodes are again noted. IMPRESSION: Hazy bilateral airspace opacities likely representing a viral pneumonia. ACT 112: Negative or not required by law. Electronically signed by: Andres Ramos M.D. 04/28/2021 9:06 AM
[2021-04-28] MEDS ORDERED: ALBUT/IPRATROP 3MG/0.5MG NEB 3 ML VIAL NEB PRN (09:13)
[2021-04-28] MEDS: dexAMETHasone 6 MG in SYRINGE 0 ML IV SCH (09:58)
[2021-04-28] MEDS: ENOXAPARIN INJ 40 MG/0.4 ML SYR SQ SCH (09:58)
[2021-04-28] MEDS: CHOLECALCIFEROL 1,000 UNITS 25 MCG TAB PO SCH (09:58)
[2021-04-28] MEDS: guaiFENesin 600 MG TABCR PO SCH ×2 (09:59→21:15)
[2021-04-28] MEDS: FAMOTIDINE 20 MG TAB PO SCH ×2 (09:59→21:15)
[2021-04-28] MEDS: ZINC SULFATE 220 MG CAPSULE PO SCH (09:59)
--- NOTE | 2021-04-28 15:10 | Hospitalist Progress Note ---
Date of Service April 28, 2021 Assessment & Plan (1) COVID-19: Plan: Ongoing symptoms for 10+ days (initially tested positive on 04/18) Primary symptoms are GI in nature (headache, vomiting, and diarrhea). Was unable to tolerate any oral intake which prompted her evaluation into the ED Patient did have tachycardia of 120 and leukocytosis of 13.17. These have since resolved with IV hydration. She has otherwise been hemodynamically stable Her current pulse ox is 98% on 2 L. Taken off of supplemental oxygen and her pulse ox remained stable at 93%. Last evening she apparently did drop briefly to 88% although she denies any shortness of breath We will stop remdesivir that was started as she does not qualify. She is outside if the 7-day window to benefit from remdesivir but also is not requiring any oxygen We will continue Decadron as initiated yesterday. At least for now Continue monitoring over the next 24 hours with reassessment tomorrow. If she remains stable and not requiring oxygen, can consider potential discharge within the next 24 hours Initially started on empiric azithromycin. Hold off on this for now as I do not believe she needs antibiotics at this time. Her symptoms seem very consistent with COVID-19 Although her chest x-ray is read as mild hazy bilateral airspace disease likely representing viral pneumonia, it is not significantly changed from an old x-ray done 07/10. Is difficult to compare as one is overpenetrated while the other is underpenetrated; however, the vasculature/airspace seems very similar (2) Thrombocytopenia: Plan: Platelet count 114 upon arrival (07/09/2019) Likely related to Covid We will trend (3) Abnormal LFTs: Plan: AST 44 upon admission Likely secondary to COVID-19 infection Follow-up labs tomorrow to trend (4) Diarrhea due to COVID-19: Plan: Diarrhea due to COVID-19 infection-no diarrhea since hospitalization (5) Leukocytosis: Plan: Likely reactive from vomiting Has since normalized Plan: Plan for potential discharge within the next 24 hours Admission and Anticipated Discharge Date Admission Date: April 28, 2021 Subjective Patient seen on daily rounds today. Hospitalized early this morning with Covid and mild hypoxemia. Presented primarily with GI symptoms including nausea, vomiting, and diarrhea. Was unable to keep anything down. Initially tested positive on 04/18. Denies any respiratory symptoms. Briefly dropped her pulse ox to around 88% yesterday. Has been on 2 L of supplemental oxygen since then and her pulse ox is between 96 and 99%. She denies any shortness of breath. Did have some mild tachycardia and leukocytosis upon presentation. Those have since resolved with IV hydration. Her nausea, vomiting, and diarrhea has since resolved. Review of Systems Review of Systems: All systems reviewed and are unremarkable except as noted in HPI and below Denies fevers, chills, headache, nasal congestion, sore throat, cough, chest pain, shortness of breath, palpitations, orthopnea, PND, abdominal pain, nausea, vomiting, diarrhea, constipation, dysuria, hematuria, frequency, back pain, j oint pain or swelling, easy bruising or bleeding, skin lesions or rashes. Physical Exam Physical Exam: General: Resting comfortably in her hospital bed. Appears mildly ill but not toxic. NAD. HEENT: Head is AT/NC buccal mucosa is moist and pink Neck: No JVD. Negative hepatojugular reflex Cardiac: RRR without M/G/R Lungs: CTA without W/R/R Abdomen: Normoactive X4. Soft and nontender in all quadrants. Extremities: No peripheral clubbing cyanosis or edema Neuro: A&O X4 cranial nerves II through XII are grossly intact no focal neuro deficits Skin: Multiple tattoos Psych: Appropriate affect pleasant and cooperative Results & Data Results & Data ([facility]) Vital Signs (Past 12 Hours) Vital Signs Temp Pulse Pulse Resp BP Pulse Ox Pulse Ox 04/28/21 11:05 36.5 C 63 18 114/62 93 04/28/21 08:00 95 94 04/28/21 07:40 36.8 C 99 H 22 97/65 L 94 04/28/21 06:01 86 14 97 04/28/21 05:26 36.8 C 83 18 104/68 93 04/28/21 04:57 95 04/28/21 04:38 80 18 107/67 96 Laboratory Results 04/28/21 00:14 04/28/21 00:14 Diagnostic Findings CXR: IMPRESSION: Hazy bilateral airspace opacities likely representing a viral pneumonia but when you compare her CXR to one done in 2019-- VERY SIMILAR in appearance (06/2019 appears overpenetrated and today's is underpenetrated but no obvious/convincing infiltrates). PG Care Time/CCT Total # of Minutes Spent Total Time Spent with Patient: Total time spent is greater than 50% in coordination of care (as documented) at patient's floor/unit and/or counseling patient: Coding Level of Care Code None Diagnoses Thrombocytopenia D69.6 Abnormal LFTs R79.89 Diarrhea due to COVID-19 U07.1; A08.39 COVID-19 U07.1 Leukocytosis D72.829
[2021-04-28] MEDS ORDERED: REMDESIVIR 100 MG in SODIUM CHLORIDE 0.9% 230 ML IV SCH (20:00)
--- NOTE | 2021-04-28 22:20 | Electrocardiogram Report ---
Test Reason : Blood Pressure : / mmHG Vent. Rate : 094 BPM Atrial Rate : 094 BPM P-R Int : 154 ms QRS Dur : 066 ms QT Int : 354 ms P-R-T Axes : 062 032 041 degrees QTc Int : 442 ms Normal sinus rhythm Possible Left atrial enlargement Borderline ECG When compared with ECG of 19-JUL-2019 17:32, No significant change was found Confirmed by Sumeet Salvador ([id number]) on 04/28/2021 10:20:04 PM Referred By: REFERRED SELF Confirmed By:Sumeet Salvador
[2021-04-29 05:47] LABS: Hematocrit (blood only) 38.3 % (37-47); Immature Granulocytes # (auto) 0.02 K/uL (0.00-0.02); Immature Granulocytes % (auto) 0.4 %; Lymphocytes # (auto) 0.58 K/uL (1.2-3.4); Lymphocytes % (auto) 10.2 %; Mean Corpuscular Hemoglobin 29.5 pg (25-34); Mean Corpuscular Hgb Conc 33.9 g/dL (32-36); Mean Corpuscular Volume 86.8 fL (80-100); Mean Platelet Volume 11.5 fL (7.4-10.4); Monocytes # (auto) 0.39 K/uL (0.11-0.59); Monocytes % (auto) 6.8 %; Neutrophils # (auto) 4.71 K/uL (1.4-6.5); Neutrophils % (auto) 82.6 %; Platelet Count 139 K/uL (130-400); RDW Coefficient of Variation 13.4 % (11.5-14.5); RDW Standard Deviation 42.8 fL (36.4-46.3); Red Blood Count 4.41 M/uL (4.2-5.4)
[2021-04-29 06:08] LABS: Magnesium 2.4 mg/dl (1.8-2.4)
[2021-04-29 06:11] LABS: Albumin Level 2.3 gm/dl (3.4-5.0); BUN Creatinine Ratio 25.6 (10-20); Calcium 8.1 mg/dl (8.5-10.1); Creatinine Clr Calc Pharmacy 67.6 ml/min; Est GFR (Non-African American) 84.5 ml/min; Potassium 4.3 mmol/L (3.5-5.1)
[2021-04-29 06:14] LABS: Albumin Globulin Ratio 0.6 (0.9-2); Bilirubin,Total 0.3 mg/dl (0.2-1); C Reactive Protein 4.59 mg/dl (0-0.29); Globulin 3.8 gm/dl (2.5-4.0); Total Protein 6.1 gm/dl (6.4-8.2)
[2021-04-29] MEDS ORDERED: BENZONATATE 100 MG CAPSULE PO PRN (09:09)
[2021-04-29] MEDS ORDERED: ACETAMINOPHEN 325 MG TAB PO PRN (09:09)
[2021-04-29] MEDS: ZINC SULFATE 220 MG CAPSULE PO SCH (09:28)
[2021-04-29] MEDS: ENOXAPARIN INJ 40 MG/0.4 ML SYR SQ SCH (09:28)
[2021-04-29] MEDS: guaiFENesin 600 MG TABCR PO SCH ×2 (09:28→20:26)
[2021-04-29] MEDS: FAMOTIDINE 20 MG TAB PO SCH ×2 (09:28→20:26)
[2021-04-29] MEDS: CHOLECALCIFEROL 1,000 UNITS 25 MCG TAB PO SCH (09:28)
[2021-04-29] MEDS: dexAMETHasone 6 MG in SYRINGE 0 ML IV SCH (09:28)
[2021-04-29] MEDS: ALBUT/IPRATROP 3MG/0.5MG NEB 3 ML VIAL NEB SCH ×3 (10:57→19:36)
[2021-04-29] MEDS ORDERED: FUROSEMIDE 20 MG TAB PO ONE (11:46)
--- NOTE | 2021-04-29 15:50 | Hospitalist Progress Note ---
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 Was unable to tolerate any oral intake which prompted her evaluation into the ED Patient did have tachycardia of 120 and leukocytosis of 13.17. These have since resolved with IV hydration. She has otherwise been hemodynamically stable Pulse Ox had remained stable on Ox but dropped in the overnight hours 04/28 - 04/29 (briefly to 86%. Went up to 89% with arousable and has remained 92-96% on 2L) does not meet criteria for Remdesivir (outside of the window for treatment) continue Decadron continue Incentive Spirometry, Neb treatments, mucolytic agents and add antitussives as needed Continue Tylenol as needed for headache/fever Initially started on empiric azithromycin. Hold off on this for now as I do not believe she needs antibiotics at this time. Her symptoms seem very consistent with COVID-19 (procalcitonin normal at 0.08) Although her chest x-ray is read as mild hazy bilateral airspace disease likely representing viral pneumonia, it is not significantly changed from an old x-ray done 07/10. Is difficult to compare as one is overpenetrated while the other is underpenetrated; however, the vasculature/airspace seems very similar I am not highly suspicious that she has a pulmonary embolism; however, she was tachycardic upfront and did drop her pulse ox to 86% without significant infiltrates seen on her chest x-ray. Will obtain a CTA to ensure no underlying PE. She is not on hormone replacement therapy and does not smoke (2) Thrombocytopenia: Plan: Platelet count 114 upon arrival now up to 122 Likely related to Covid We will trend (3) Abnormal LFTs: Plan: AST 44 upon admission--> has since normalized Likely secondary to COVID-19 infection Follow-up labs tomorrow to trend (4) Diarrhea due to COVID-19: Plan: Diarrhea due to COVID-19 infection-1 bout of diarrhea in past 24 hours (5) Leukocytosis: Plan: Likely reactive from vomiting Has since normalized Plan: given change in status, will watch for additional 24 hours (as opposed to sending her home today as initially planned) Admission and Anticipated Discharge Date Admission Date: April 28, 2021 Subjective Patient seen on daily rounds today. Overall vocalizes no significant complaints or concerns. Denies fevers, chills, chest pain, shortness of breath, abdominal pain, nausea or vomiting. Had 1 bout of diarrhea yesterday after eating. Does report a cough but cough is not keeping her up at night. She still feels weak. Was taken off of oxygen and remained on room air all day yesterday. While sleeping, she desaturated briefly to 86%. Nursing staff went to assess the patient and when she was aroused, her pulse ox came up to 89%. Has been in the low to mid 90s on 2 L of supplemental oxygen. Review of Systems Review of Systems: All systems reviewed and are unremarkable except as noted in HPI and below Denies fevers, chills, headache, nasal congestion, sore throat, cough, chest pain, shortness of breath, palpitations, orthopnea, PND, abdominal pain, nausea, vomiting, constipation, dysuria, hematuria, frequency, back pain, joint pain or swelling, easy bruising or bleeding, skin lesions or rashes. Physical Exam Physical Exam: General: Resting comfortably in her hospital bed. She appears mildly ill but not toxic. NAD. HEENT: Head is AT/NC buccal mucosa is moist and pink Neck: No JVD. Negative hepatojugular reflex Cardiac: RRR without M/G/R Lungs: Speaking full sentences on 2 L supplemental oxygen. No accessory muscle use or labored breathing. Good air exchange throughout without W/R/R Abdomen: Normoactive X4. Soft and nontender in all quadrants. Extremities: No peripheral clubbing cyanosis or edema Neuro: A&O X4 cranial nerves II through XII are grossly intact no focal neuro deficits Skin: No obvious skin lesions or rashes Psych: Appropriate affect pleasant and cooperative Results & Data Results & Data ([facility]) Vital Signs (Past 12 Hours) Vital Signs Temp Pulse Resp BP Pulse Ox 04/29/21 15:05 68 18 96 04/29/21 13:27 36.5 C 80 20 115/63 92 04/29/21 10:58 88 16 96 04/29/21 08:20 36.8 C 75 20 156/87 H 92 04/29/21 04:00 36.6 C 59 L 20 91/59 L 89 L Laboratory Results 04/29/21 05:07 04/29/21 05:07 PG Care Time/CCT Total # of Minutes Spent Total Time Spent with Patient: Total time spent is greater than 50% in coordination of care (as documented) at patient's floor/unit and/or counseling patient: Coding Level of Care Code 61738 Subseq Hosp Care Lvl 2 Diagnoses COVID-19 U07.1 Thrombocytopenia D69.6 Abnormal LFTs R79.89 Diarrhea due to COVID-19 U07.1; A08.39 Leukocytosis D72.829
[2021-04-29] MEDS ORDERED: OPTIRAY 320 125ml IV ONE (15:59)
--- NOTE | 2021-04-29 16:18 | CT Scan Report ---
CT angio chest PE protocol CT DOSE: 450.14 mGy.cm HISTORY: 45 years-old Female with r/o pe. Acute shortness of breath TECHNIQUE: Multiple CTA images of the chest were obtained after the intravenous administration of 120 ml Optiray. Coronal and sagittal MIPS were obtained from the axial data set and were submitted for review. All measurements were obtained according to NASCET criteria. A dose lowering technique was u tilized adhering to the principles of ALARA. COMPARISON: Chest radiograph 04/27/2021, CTA chest 02/26/2008. FINDINGS: CTA: The heart is normal in size. No pericardial effusion. There is no thoracic aortic aneurysm or dissect ion. There is patency of the imaged great vessels. Satisfactory opacification of the pulmonary artery . No filling defects identified to suggest thromboembolic disease. CT CHEST: No thyroid nodule or adenopathy identified. No pneumothorax or pleural effusion. There is a focal 2.8 cm lucent area of the right upper lobe on image 158 with central branching calcifications which may reflect an area of bronchial atresia. Subpleural predominant groundglass and consolidative opacities are noted bilaterally, most pronounced dependently. There are no suspicious pulmonary nodules or mass es. No overt pulmonary edema. The central airways appear patent. No acute process of the imaged upper abdomen. Unremarkable soft tissues. No acute fracture. IMPRESSION: 1. No pulmonary emboli. 2. Bilateral subpleural and dependent predominant groundglass and consolidative opacities are compati ble with multifocal likely viral pneumonia. ACT 112: Negative or not required by law. The above report was generated using voice recognition software. It may contain grammatical, syntax o r spelling errors. Electronically signed by: Harry Chaudhari M.D. 04/29/2021 4:16 PM
[2021-04-30 06:59] LABS: Basophils # (auto) 0.01 K/uL (0-0.2); Basophils % (auto) 0.1 %; Hematocrit (blood only) 36.7 % (37-47); Hemoglobin 12.4 g/dL (12.0-16.0); Immature Granulocytes # (auto) 0.02 K/uL (0.00-0.02); Immature Granulocytes % (auto) 0.2 %; Lymphocytes # (auto) 0.68 K/uL (1.2-3.4); Mean Corpuscular Hemoglobin 29.5 pg (25-34); Mean Corpuscular Hgb Conc 33.8 g/dL (32-36); Mean Corpuscular Volume 87.4 fL (80-100); Mean Platelet Volume 11.4 fL (7.4-10.4); Monocytes # (auto) 0.73 K/uL (0.11-0.59); Monocytes % (auto) 7.5 %; Neutrophils # (auto) 8.31 K/uL (1.4-6.5); Neutrophils % (auto) 85.2 %; Platelet Count 175 K/uL (130-400); RDW Coefficient of Variation 13.5 % (11.5-14.5); RDW Standard Deviation 43.3 fL (36.4-46.3); White Blood Count 9.75 K/uL (4.8-10.8)
[2021-04-30 07:29] LABS: Albumin Level 2.3 gm/dl (3.4-5.0); BUN Creatinine Ratio 27.8 (10-20); Calcium 7.9 mg/dl (8.5-10.1); Creatinine Clr Calc Pharmacy 65.3 ml/min; Est GFR (African American) 93.9 ml/min; Magnesium 2.2 mg/dl (1.8-2.4); Potassium 4.3 mmol/L (3.5-5.1)
[2021-04-30 07:32] LABS: Albumin Globulin Ratio 0.7 (0.9-2); Bilirubin,Total 0.4 mg/dl (0.2-1); Globulin 3.5 gm/dl (2.5-4.0); Total Protein 5.8 gm/dl (6.4-8.2)
[2021-04-30] MEDS: ALBUT/IPRATROP 3MG/0.5MG NEB 3 ML VIAL NEB SCH ×2 (07:41→10:57)
[2021-04-30] MEDS: guaiFENesin 600 MG TABCR PO SCH (09:53)
[2021-04-30] MEDS: ZINC SULFATE 220 MG CAPSULE PO SCH (09:53)
[2021-04-30] MEDS: FAMOTIDINE 20 MG TAB PO SCH (09:54)
[2021-04-30] MEDS: ENOXAPARIN INJ 40 MG/0.4 ML SYR SQ SCH (09:54)
[2021-04-30] MEDS: CHOLECALCIFEROL 1,000 UNITS 25 MCG TAB PO SCH (09:55)
[2021-04-30] MEDS: dexAMETHasone 6 MG in SYRINGE 0 ML IV SCH (09:55)
--- NOTE | 2021-04-30 13:43 | Discharge Summary ---
Date of Service April 30, 2021 Admission HPI Per Admitting Provider The patient is a 45-year-old female with no significant past medical history who presents with symptoms as noted above. Significant laboratories: Hemoglobin 12.9, hematocrit 38.0, platelets 114, AST 44, albumin 2.5. Patient is COVID-19 positive this evening, with influenza a and B- and RSV negative. Pulse ox 88% on room air Chest x-ray with multifocal pneumonia Principal Diagnosis 1. COVID-19 with multilobar pneumonia 2. Hypoxemia 3. Thrombocytopeniaresolved and secondary to Covid 4. Mild transaminitisresolved and secondary to Covid Discharge Exam General: Resting comfortably in her hospital bed does not appear ill or toxic NAD. HEENT: Head is AT/NC buccal mucosa is moist and pink Neck: No JVD. Negative hepatojugular reflex Cardiac: RRR without M/G/R Lungs: CTA without W/R/R Abdomen: Normoactive X4. Soft and nontender in all quadrants. Extremities: No peripheral clubbing cyanosis or edema Neuro: A&O X4 cranial nerves II through XII are grossly intact no focal neuro deficits Skin: No obvious skin lesions or rashes Psych: Appropriate affect pleasant and cooperative Discharge Data Allergies Allergy/AdvReac Type Severity Reaction Status Date / Time No Known Allergies Allergy Verified 04/28/21 00:22 Consultations 04/28/21 00:51 ED Decision to Admit Stat Ordered Studies 04/29/21 07:00 CT angio chest PE protocol Urgent IMPRESSION: 1. No pulmonary emboli. 2. Bilateral subpleural and dependent predominant groundglass and consolidative opacities are compatible with multifocal likely viral pneumonia. Hospital Course (1) COVID-19: Ongoing symptoms for 11+ days [employer]--(initially tested positive on 04/18) Primary symptoms GI in nature (headache, vomiting, and diarrhea). Was unable to tolerate any oral intake which prompted her evaluation into the ED Patient did have tachycardia of 120 and leukocytosis of 13.17. These have since resolved with IV hydration. She has otherwise been hemodynamically stable Pulse Ox had remained stable on RA but dropped in the overnight hours 04/28 - 06/30 (briefly to 86%. Went up to 89% with arousable and has remained 92-96% on 2L) does not meet criteria for Remdesivir (outside of the window for treatment) Decadron x3 doses while in house (continue upon D/C for 10 days total) Utilized incentive Spirometry, Neb treatments, mucolytic agents and antitussives as needed Continue Tylenol as needed for headache/fever Initially started on empiric azithromycin. But later stopped as thought to be unnecessary. Her symptoms seem very consistent with COVID-19 (procalcitonin normal at 0.08) Although her chest x-ray was read as mild hazy bilateral airspace disease likely representing viral pneumonia, it is not significantly changed from an old x-ray done 07/10. Is difficult to compare as one is overpenetrated while the other is underpenetrated; however, the vasculature/airspace seems very similar Given the tachycardia and a brief hypoxemia, a CTA of the chest was performed that showed no evidence of PE but did show multifocal groundglass opacities consistent with Covid Patient seen on daily rounds 04/30. She remains on supplemental oxygen but her pulse ox is 96%. Taken off and her pulse ox remains above 90%. A two-step pulse oximetry performed showing no need for oxygen at rest but she does require 3 L with exertion At this point in time, I feel that she is medically and hemodynamically stable for discharge to home. She has remained stable for over 24 hours without worsening in her condition She does not qualify for IV remdesivir She can be continued on Decadron (orally) upon discharge Patient encouraged to return back to the ED for new or worsening symptoms. She vocalizes understanding Case management on board to help set up home O2 (2) Thrombocytopenia: Platelet count 114 upon arrival but has since normalized Likely related to Covid (3) Abnormal LFTs: AST 44 upon admission--> has since normalized Likely secondary to COVID-19 infection (4) Diarrhea due to COVID-19: Diarrhea due to COVID-19 infection-1 but has since resolved (5) Leukocytosis: Likely reactive from vomiting (13,000 upon arrival). Has since normalized patient has been stable for over 24 hours At this point in time, I believe she is medically and hemodynamically stable for discharged home. Unfortunately, her symptomatology may worsen and she is to come back to the ED if that is the case Total Time Total Time Spent Total Time Spent (In Minutes): 60 minutes including time spent with patient, coordination of care (discussion with case management to set up oxygen and ordering the O2), preparation of documentation and discussion with attending physician Discharge Plan Discharge Items Patient Disposition: Home - Self-Care Reason For Visit: COVID-19 PNEUMONIA WITH HYPOXIA Discharge Diagnosis: 1. Covid Pneumonia with Hypoxemia 2. Thrombocytopenia (low platelet count)-- secondary to covid and RESOLVED 3. Transaminitis (abnormal liver function studies)--secondary to covid and RESOLVED Activity: As commented below Activity Comment: as tolerated as outlined below Non-emergency contact: Primary Care Provider Call non-emergency contact if: you have any medication questions and your symptoms worsen Follow-up/Referrals: Rosa Park MD [Primary Care Provider] - (A mechanical unit repairer from [facility] will be contacting you regarding a follow up appt with your PCP. You are being discharged on a weekend, in which you PCP office is closed.) Diet: Regular Addtl Attending Provider Instructions: - you were hospitalized with Covid Pneumonia - you have associated hypoxemia (low oxygen levels) - fortunately, you have been very stable - you do not require supplemental Oxygen at rest but you need 3L with ambulation (walking) - The need for Oxygen is likely NOT permanent but necessary until your lung fully recover (which is different for everyone but may take weeks to months) - as discussed, would advise that you get a pulse oximeter to monitor Oxygen levels (goal is 90% but anything >88% is acceptable) - I advise that you remain active (as tolerated) but also do not push it. Listen to your body. You will be easily fatigued and winded and this may be ongoing for 3 months. - you will have good days and not so good days in the upcoming weeks (this is to be expected) - you have been prescribed Decadron (which is a steroid). As discussed, this serves as an antiinflammatory to help prevent your immune system from going into overdrive - Use the proair inhaler (2 puffs every 6 hours as needed for cough/shortness of breath and wheezing) - okay to use Tylenol and Ibuprofen. Would NOT take the DayQuil/NyQuil as these have medication in them that can increase your heart rate (which was an issue for you here) - Can use PLAIN MUCINEX and nasal saline if needed for nasal congestion - initially, your platelet count and liver function studies were slightly abnormal (which we are seeing a lot with covid). These have normalized - Follow up with your Family Doctor: 7-10 days - return to the ED for new or worsening symptoms Pending Studies at Discharge: No Stand-Alone Forms: My [facility], Work/School Release Medications and DC Order Prescriptions: New dexamethasone [Decadron] 6 mg tablet 6 mg PO DAILY Qty: 7 RF: 0 Proair Digihaler 90 mcg/actuation aero powdr breath act w/sensor 2 inh inhalation Q6H PRN (Reason: shortness of breath or wheezing) Qty: 1 RF: 0 Continued acetaminophen 500 mg Tablet 500 mg PO Q6H PRN (Reason: Fever Or Pain) RF: 0 Discontinued Vicks DayQuil-NyQuil 10-5-325mg(d)/ 15-325-6.25mg Capsule, Sequential 1 cap PO BID RF: 0 Discharge Orders: Discharge Order (Routine); Ordered 04/30/21 Ordered By: Gayathri Dempsey Admission Data Admit Date/Time: 04/28/21 01:43 Attending Provider: Elian Dong Admit Provider: Osito Levi Primary Care Provider: Rosa Park Other Providers: Osito Levi Other Interventions: Discharge Summary Assessment (RN) Last Done: 04/30/21 13:49 Supervising Physician Co-Signing Physician Notes Attending Attestation & Discharge Note: Pt seen/examined, chart reviewed, care plan d/w PA Gayathri Dempsey. I agree w/ the marcelo components of her discharge summary. 45yo female - no PMH - who was admitted for acute hypoxic resp failure 2nd to COVID-19 pneumonia. Improved with IV steroids and supportive care. O2 was weaned off by discharge, passing her 2-step ambulatory test. Will complete a course of oral dexamethasone at home. Discharge exam: gen - thin, NAD mouth - MMM heart - RRR, s1 s2, no murmur lungs - mild b/l basilar rales, good airation abd - soft, NT, ND, BS+ ext - no edema Elian Dong MD Coding Level of Care Code D/C DAY MANAGEMENT >30 MINS Diagnoses COVID-19 U07.1 Thrombocytopenia D69.6 Abnormal LFTs R79.89 Diarrhea due to COVID-19 U07.1; A08.39 Leukocytosis D72.829
== END 2021-04-30 14:45 | disposition home or self-care (01) | DRG 177 ==
LOC: ED 22:57 → SUATTDRO 04-28 01:43 → EDINP 04-28 01:43 → 2W 04-29 22:01
DX: J96.01 Acute respiratory failure with hypoxia; R74.01 Elevation of levels of liver transaminase levels; A08.39 Other viral enteritis; D69.59 Other secondary thrombocytopenia; J12.82 Pneumonia due to coronavirus disease 2019; U07.1 COVID-19; R51.9 Headache, unspecified; R00.0 Tachycardia, unspecified